=== PATIENT | male | born 1955 | race Caucasian/White ===

== ENCOUNTER 2017-11-11 09:24 | Emergency (ER) | payer BC, OTHER ==
--- NOTE | 2017-11-11 09:57 | EDM.PDOC ---
ED HPI GENERAL MEDICAL PROBLEM - General Chief Complaint: Headache Stated Complaint: DIZZINESS Time Seen by Provider: 11/11/17 09:36 Source of Information: Reports: Patient History Limitations: Reports: No Limitations - History of Present Illness INITIAL COMMENTS - FREE TEXT/NARRATIVE: The patient states that he developed a headache felt in his forehead around 07: 30 this morning, then became vertiginous around 07:40. His vertigo is positional. He has had nausea, but no emesis. He feels a fullness in both ears, more on the left than the right. He states that it is a discomfort, not a pain. He denies decreased hearing. No prior similar symptoms. The patient's PCP is Octavio Javier. Headache Pain Score (Numeric/FACES): 6 - Related Data Allergies Allergy/AdvReac Type Severity Reaction Status Date / Time No Known Allergies Allergy Verified 11/11/17 09:33 Home Meds: Home Meds Hydrochlorothiazide 25 mg PO DAILY 05/12/15 [History] Quinapril HCl [Accupril] 40 mg PO DAILY 05/12/15 [History] Budesonide/Formoterol Fumarate [Symbicort 80-4.5 Mcg Inhaler] 2 puff INH BID [History] Meclizine [Antivert] 1 tab PO Q6H PRN #20 tab 11/11/17 [Rx] Past Medical History Cardiovascular History: Reports: High Cholesterol (untreated), Hypertension Respiratory History: Reports: Asthma Genitourinary History: Reports: BPH (untreated) Musculoskeletal History: Reports: Fracture (4th finger) - Past Surgical History HEENT Surgical History: Reports: Oral Surgery (wisdom teeth extraction) Cardiovascular Surgical History: Reports: Other (See Below) (Coronary angiogram 1998 or 1999) Social & Family History - Family History Family Medical History: Noncontributory - Tobacco Use Smoking Status *Q: Never Smoker - Caffeine Use Caffeine Use: Reports: None - Alcohol Use Alcohol Use History: Yes Alcohol Use Frequency: Socially - Recreational Drug Use Recreational Drug Use: No - Living Situation & Occupation Living situation: Reports: , with Spouse, with Family (4 kids) Occupation: Employed (German/Rancher) ED ROS GENERAL - Review of Systems Review Of Systems: ROS reveals no pertinent complaints other than HPI. ED EXAM, DIZZINESS - Physical Exam Exam: See Below Exam Limited By: No Limitations General Appearance: Alert, WD/WN, No Apparent Distress Eye Exam: Bilateral Eye: EOMI, Normal Inspection, PERRL Ears: Normal External Exam, Normal Canal, Hearing Grossly Normal, Normal TMs Nose: Normal Inspection, Normal Mucosa, No Blood Throat/Mouth: Normal Inspection, Normal Lips, Normal Teeth, Normal Gums, Normal Oropharynx, Normal Voice, No Airway Compromise Head Exam: Atraumatic, Normocephalic Vertigo: worsens with head to R, reproducible, reversible, short duration. No: worsens with head to L Neck: Normal Inspection, Full Range of Motion Respiratory/Chest: No Respiratory Distress, Lungs Clear, Normal Breath Sounds, No Accessory Muscle Use Cardiovascular: Normal Peripheral Pulses, Regular Rate, Rhythm, No Edema, No Gallop, No JVD, No Murmur, No Rub GI/Abdominal: Normal Bowel Sounds, Soft, Non-Tender, No Organomegaly, No Distention, No Abnormal Bruit, No Mass (Male) Exam: Deferred Rectal (Males) Exam: Deferred Neurological: Alert, Normal Dorsiflexion, CN II-XII Intact, Normal Plantar Flexion, No Motor/Sensory Deficits, Oriented x 3 Back Exam: Normal Inspection, Full Range of Motion, NT Extremities: Normal Inspection, Normal Range of Motion, No Pedal Edema, Normal Capillary Refill Psychiatric: Normal Affect Skin Exam: Warm, Dry, Intact, Normal Color, No Rash Course - Vital Signs Last Recorded V/S: Last Vital Signs Temp 36.4 C 11/11/17 11:09 Pulse 64 11/11/17 11:09 Resp 16 11/11/17 11:09 BP 117/79 11/11/17 11:09 Pulse Ox 97 11/11/17 11:09 - Orders/Labs/Meds Orders: Active Orders 24 hr Category Date Time Status Head wo Cont [CT] Stat Exams 11/11/17 09:54 Taken Meds: Medications Discontinued Medications Generic Name Dose Route Start Last Admin Trade Name Keila PRN Reason Stop Dose Admin Meclizine HCl 25 mg 11/11/17 11:03 11/11/17 11:08 Antivert PO 11/11/17 11:04 25 mg ONETIME STA Administration - Re-Assessments/Exams Free Text/Narrative Re-Assessment/Exam: 11/11/17 09:55 The patient reports that his vertigo is modified with position, indicating a peripheral source, and while the Oxford-Hallpike maneuver to the right induced vertigo, it did not induce nystagmus. I think it is most likely that the patient is suffering from BPPV, although with his ear fullness, Mnire's is a possibility. The patient's neurologic exam is completely normal, however, he has a headache. To be on the safe side, I will order a CT scan of the head, although I have no suspicion that it will be anything but normal. 11/11/17 10:42 CT of the head without contrast is read by [facility] as "No acute intracranial hemorrhage." 11/11/17 11:02 Test results discussed with the patient. The patient will receive a dose of meclizine here in the ED prior to discharge, and I will send a prescription for additional. The patient declined an offer for Zofran. I will refer the patient to Dr. Rodriguez for definitive diagnosis and treatment. Departure - Departure Time of Disposition: 11:03 Disposition: Home, Self-Care 01 Condition: Good Clinical Impression: Vertigo - Discharge Information *PRESCRIPTION DRUG MONITORING PROGRAM REVIEWED*: Not Applicable *COPY OF PRESCRIPTION DRUG MONITORING REPORT IN PATIENT ENIO: Not Applicable Prescriptions: Meclizine [Antivert] 1 tab PO Q6H PRN #20 tab PRN Reason: Dizziness Instructions: Vertigo, [id number], Dizziness, [id number] Referrals: cOtavio Javier PA-C [Primary Care Provider] - Ramírez Rodriguez MD [Ordering Only Provider] - Forms: ED Department Discharge Additional Instructions: You were seen in the emergency room for a headache, vertigo, and nausea. Workup in the ER included a CT scan of her head, which was normal. Based on your history and physical examination, you are MOST LIKELY suffering from benign paroxysmal positional vertigo (BPPV), although Mnire disease is a possibility. You have been started on the anti-dizziness medicine Antivert (meclizine). A prescription for Antivert has been sent to the [facility], [address] [place], located just south and across the [address] from [facility]. Take one tablet every 6 hours, starting around 5:00 this evening, 11/11/2017, as needed for dizziness. Follow-up with the Ear, Nose, and Throat Dr. Ramírez Rodriguez in [place] at the next available appointment, for further evaluation and treatment. If any other problems, please do not hesitate to return to the ER. - My Orders Last 24 Hours: My Active Orders 11/11/17 09:54 Head wo Cont [CT] Stat - Assessment/Plan Last 24 Hours: My Active Orders 11/11/17 09:54 Head wo Cont [CT] Stat
[2017-11-11 11:11] VITALS: BP 117/79
--- NOTE | 2017-11-13 19:39 | CT ---
Head CT Technique: Multiple axial sections through the brain were obtained. Intravenous contrast was not utilized. Comparison: No prior intracranial imaging. Findings: Ventricles along with basal cisterns and sulci over the convexities are within normal limits for the patient's age. Very minimal diminished density is noted within the periventricular white matter compatible with slight small vessel ischemic demyelination change. No other abnormal parenchymal densities are seen. No evidence of intracranial hemorrhage. No midline shift or mass effect is seen. Atherosclerotic calcification is noted within the vertebral and carotid siphon. No acute calvarial abnormality is seen. Impression: 1. Mild senescent change. Nothing acute is appreciated on noncontrast head CT study. Diagnostic code #2
== END 2017-11-11 11:20 | disposition home or self-care (01) ==
LOC: JD.ED 09:24
DX: R42 Dizziness and giddiness (principal); I10 Essential (primary) hypertension; Z79.899 Other long term (current) drug therapy
CPT/HCPCS: 70450; 99284; A9270

== ENCOUNTER 2017-11-11 19:52 | Emergency (ER) | payer OTHER ==
[2017-11-11 20:20] VITALS: BP 126/75
[2017-11-11] MEDS ORDERED: Benztropine 1 MG Tab PO STA (20:29)
[2017-11-11] MEDS ORDERED: Ondansetron 4 MG/2 ML SDV IVPUSH ONE (20:29)
[2017-11-11] MEDS ORDERED: Haloperidol Lactate 5 MG/ML SDV IM ONE (20:29)
[2017-11-11] MEDS ORDERED: Sodium Chloride 0.9% 1,000 ML IV SCH (20:30)
--- NOTE | 2017-11-11 20:35 | EDM.PDOC ---
ED HPI GENERAL MEDICAL PROBLEM - General Chief Complaint: Neurological Problem Stated Complaint: POSS STROKE Time Seen by Provider: 11/11/17 20:03 Source of Information: Reports: Patient, Family () History Limitations: Reports: No Limitations - History of Present Illness INITIAL COMMENTS - FREE TEXT/NARRATIVE: A stroke alert was called on this patient. The patient was seen by me this morning after he developed a headache felt in his forehead around 07:30, then vertigo around 07:40. His vertigo was positional. He had had nausea, but no emesis. He had a fullness sensation in both ears, more on the left than the right, but denied decreased hearing. On examination, he had reproducible vertigo with Sayner-Hallpike maneuver to the right , but none with Cinthya-Hallpike maneuver to the left, and nystagmus was not induced with either Sayner-Hallpike maneuver. A CT scan of the head was normal. Because the vertigo was modified with position, this indicated a peripheral source, most consistent with BPPV, although Mnire's was a possibility. The patient was given a dose of meclizine in the ED, then discharged home with a prescription for additional. He declined an offer for Zofran. He was referred to the ENT Dr. Rodriguez. The patient now returns to the ED, having developed some slurred speech perhaps around 15:00, then right upper and lower extremity weakness sometime between 18: 00 and 19:00. He continues to have a headache felt in his forehead and discomfort behind his left ear. He describes the headache as throbbing in character. He reports mild photophobia and phonophobia. He had nausea earlier, which has since resolved. The patient's PCP is Octavio Javier. - Related Data Allergies Allergy/AdvReac Type Severity Reaction Status Date / Time No Known Allergies Allergy Verified 11/11/17 20:20 Home Meds: Home Meds Hydrochlorothiazide 25 mg PO DAILY 05/12/15 [History] Quinapril HCl [Accupril] 40 mg PO DAILY 05/12/15 [History] Budesonide/Formoterol Fumarate [Symbicort 80-4.5 Mcg Inhaler] 2 puff INH BID [History] Meclizine [Antivert] 1 tab PO Q6H PRN #20 tab 11/11/17 [Rx] Past Medical History Cardiovascular History: Reports: High Cholesterol (untreated), Hypertension Respiratory History: Reports: Asthma Genitourinary History: Reports: BPH (untreated) Musculoskeletal History: Reports: Fracture (4th finger) - Past Surgical History HEENT Surgical History: Reports: Oral Surgery (wisdom teeth extraction) Cardiovascular Surgical History: Reports: Other (See Below) (Coronary angiogram 1998 or 1999) Social & Family History - Family History Family Medical History: Noncontributory - Tobacco Use Smoking Status *Q: Never Smoker Second Hand Smoke Exposure: No - Caffeine Use Caffeine Use: Reports: None - Alcohol Use Alcohol Use History: Yes Alcohol Use Frequency: Socially - Recreational Drug Use Recreational Drug Use: No - Living Situation & Occupation Living situation: Reports: , with Spouse, with Family (4 kids) Occupation: Employed (German/Rancher) ED ROS GENERAL - Review of Systems Review Of Systems: ROS reveals no pertinent complaints other than HPI. ED EXAM, NEURO - Physical Exam Exam: See Below Exam Limited By: No Limitations General Appearance: Alert, WD/WN, No Apparent Distress Eye Exam: Bilateral Eye: EOMI, Normal Inspection, Nystagmus (with rightward gaze only - fast component to the right), PERRL Ears: Normal External Exam, Normal Canal, Hearing Grossly Normal, Normal TMs Nose: Normal Inspection, Normal Mucosa, No Blood Throat/Mouth: Normal Inspection, Normal Lips, Normal Teeth, Normal Gums, Normal Oropharynx, Normal Voice, No Airway Compromise Head Exam: Atraumatic, Normocephalic Neck: Normal Inspection, Supple, Non-Tender, Full Range of Motion Respiratory/Chest: No Respiratory Distress, Lungs Clear, Normal Breath Sounds, No Accessory Muscle Use, Chest Non-Tender Cardiovascular: Normal Peripheral Pulses, Regular Rate, Rhythm, No Edema, No Gallop, No JVD, No Murmur, No Rub GI/Abdominal: Normal Bowel Sounds, Soft, Non-Tender, No Organomegaly, No Distention, No Abnormal Bruit, No Mass (Male) Exam: No Hernia, Normal Inspection, Normal Prostate, Circumcised Rectal (Males) Exam: Normal Exam, Normal Rectal Tone, Prostate Normal Neurological: Alert, Normal Mood/Affect, Normal Dorsiflexion, CN II-XII Intact, Normal Plantar Flexion, Normal Gait, Normal Reflexes, No Motor/Sensory Deficits , Oriented x 3 Back Exam: Normal Inspection, Full Range of Motion, NT Extremities: Normal Inspection, Normal Range of Motion, Non-Tender, No Pedal Edema, Normal Capillary Refill Psychiatric: Normal Affect, Normal Mood Skin Exam: Warm, Dry, Intact, Normal Color, No Rash EKG INTERPRETATION EKG Date: 11/11/17 Time: 19:58 Rhythm: Other (Sinus bradycardia) Rate (Beats/Min): 56 Gormania: LAD-Left Gormania Deviation P-Wave: Present QRS: Other (Possible LAFB) ST-T: Normal QT: Normal Comparison: No Change (08/19/2017) Course - Vital Signs Last Recorded V/S: Last Vital Signs Temp 36.2 C 11/11/17 19:58 Pulse 55 L 11/11/17 19:58 Resp 16 11/11/17 19:58 BP 126/75 11/11/17 19:58 Pulse Ox 99 11/11/17 19:58 - Orders/Labs/Meds Orders: Active Orders 24 hr Category Date Time Status EKG Documentation Completion [RC] STAT Care 11/11/17 19:58 Active Head wo Cont [CT] Stat Exams 11/11/17 20:02 Taken Sodium Chloride 0.9% [Normal Saline] 1,000 ml Med 11/11/17 20:30 Active IV ASDIRECTED Medication Orders Sodium Chloride (Normal Saline) 1,000 mls @ 100 mls/hr IV ASDIRECTED MADDY Last Admin: 11/11/17 20:59 Dose: 100 mls/hr Meds: Medications Generic Name Dose Route Start Last Admin Trade Name Freq PRN Reason Stop Dose Admin Sodium Chloride 1,000 mls @ 100 mls/hr 11/11/17 20:30 11/11/17 20:59 Normal Saline IV 100 mls/hr ASDIRECTED MADDY Administration Discontinued Medications Generic Name Dose Route Start Last Admin Trade Name Freq PRN Reason Stop Dose Admin Aspirin 324 mg 11/11/17 21:33 11/11/17 21:38 Aspirin PO 11/11/17 21:34 324 mg ONETIME STA Administration Benztropine Mesylate 1 mg 11/11/17 20:29 11/11/17 20:52 Cogentin PO 11/11/17 20:30 1 mg ONETIME STA Administration Haloperidol Lactate 5 mg 11/11/17 20:29 11/11/17 20:49 Haldol IM 11/11/17 20:30 5 mg ONETIME ONE Administration Ondansetron HCl 4 mg 11/11/17 20:29 11/11/17 20:46 Zofran IVPUSH 11/11/17 20:30 4 mg ONETIME ONE Administration - Re-Assessments/Exams Free Text/Narrative Re-Assessment/Exam: 11/11/17 20:35 CT of the head without contrast is read by [facility] as: - No acute findings seen within the brain. - No significant change compared to a head CT done 10 hours prior. - See above for remaining findings. 11/11/17 20:38 The patient is right-handed, therefore there is about a 95% chance that his language center is in his left hemisphere, yet the patient is able to speak fluidly despite having a right-sided hemiparesis. Has had a headache all day, yet no intracranial bleed to account for it. He presented with both a headache and vertigo this morning, yet his vertigo, while positional, did not include nystagmus. Upon further questioning of his headache, the patient confirms that it is throbbing in character, associated with mild photophobia and phonophobia. He had already told us that he has nausea without emesis. These findings are all consistent with a migraine, which could account for all of his symptoms. I have therefore ordered 5 mg of IM Haldol, along with oral Cogentin, IV fluid, and Zofran. If the patient's symptoms improve or resolve in 15 or 20 minutes, and there is no question but that his symptoms were caused by migraine. If they have no effect in 15 or 20 minutes, then his symptoms are highly unlikely to be migrainous in etiology. 11/11/17 21:17 It has been 20 minutes since the patient received IM Haldol. He reports slight improvement in his right facial paresthesia, but no improvement in his other neurologic deficits. 11/11/17 21:45 Case discussed with [facility] at 21:21. Case then discussed with Dr. Dozier, Stroke Neurologist at [facility], at 21: 27. She recommended that we give a full aspirin. She recommends that the patient be transferred to their facility for a stroke workup, however, she stated that there was no kc, as the patient was not a candidate for intervention, if this turns out to be a stroke, and that therefore the patient could be driven to their facility. Case then discussed with Dr. Bah, Hospitalist at [facility], at 21:36. He accepts the patient for transfer. The above was then discussed with the patient and his . The patient states that he thinks his symptoms are better, but on reexamination, they seem about the same to me. We are looking to see if we can transfer the patient by ground ambulance. If not, it sounds most likely that the patient's would drive the patient. 11/11/17 22:05 Notified that neither [facility] nor [facility] ambulance can transfer the patient to [place]. This was discussed with the patient and his . The patient's is too nervous to drive the patient herself, therefore he will go by fixed wing. 11/11/17 22:43 Notified that the patient's son has come to the ED, and they have collectively changed their mind. They will now drive by private vehicle. Departure - Departure Time of Disposition: 21:40 Disposition: DC/Tfer to Acute Hospital 02 Condition: Fair Clinical Impression: Right hemiparesis, Frontal headache, Positional vertigo - Discharge Information *PRESCRIPTION DRUG MONITORING PROGRAM REVIEWED*: Not Applicable *COPY OF PRESCRIPTION DRUG MONITORING REPORT IN PATIENT ENIO: Not Applicable Referrals: Octavio Javier PA-C [Primary Care Provider] - - My Orders Last 24 Hours: My Active Orders 11/11/17 19:58 EKG Documentation Completion [RC] STAT 11/11/17 20:02 Head wo Cont [CT] Stat 11/11/17 20:30 Sodium Chloride 0.9% [Normal Saline] 1,000 ml IV ASDIRECTED - Assessment/Plan Last 24 Hours: My Active Orders 11/11/17 19:58 EKG Documentation Completion [RC] STAT 11/11/17 20:02 Head wo Cont [CT] Stat 11/11/17 20:30 Sodium Chloride 0.9% [Normal Saline] 1,000 ml IV ASDIRECTED
[2017-11-11] MEDS ORDERED: Aspirin 81 MG Tab.Chew PO STA (21:33)
== END 2017-11-11 23:00 ==
LOC: JD.ED 19:52
DX: G81.91 Hemiplegia, unspecified affecting right dominant side (principal); R42 Dizziness and giddiness; R51 Headache; I10 Essential (primary) hypertension; Z79.899 Other long term (current) drug therapy
CPT/HCPCS: 70450; 93005; 96361; 96372; 96374; 99285; A9270; J1630; J2405; J7040; 93010

== ENCOUNTER 2020-04-15 05:10 | Emergency (ER) | payer MEDICARE, BC ==
[2020-04-15 05:21] VITALS: BP 190/128; PULSE 63
[2020-04-15] MEDS ORDERED: Sodium Chloride 0.9% 10 ML Syringe FLUSH PRN (05:47)
[2020-04-15] MEDS ORDERED: Labetalol 100 MG/20 ML MDV IVPUSH ONE (05:48)
--- NOTE | 2020-04-15 06:17 | EDM.PDOC ---
ED HPI GENERAL MEDICAL PROBLEM - General Chief Complaint: Upper Extremity Injury/Pain Stated Complaint: PAIN IN LEFT SHOULDER & ARM Time Seen by Provider: 04/15/20 05:30 Source of Information: Reports: Patient, Family (), RN Notes Reviewed - History of Present Illness INITIAL COMMENTS - FREE TEXT/NARRATIVE: 64 yr old male with L neck and shoulder pain on and off for about the last week. Pain became more severe late last evening with radiation down L upper arm down to about his elbow. Has also had some mild paresthesias fingers radial aspect of L hand. No chest pressure, tightness or heaviness. No cough, fever, chills, abd pain, back pain, nausea or vomiting. Hx Htn, Hx of previous CVA about 2 1/2 yrs ago. Took aleve about 1 /2 hrs ago and discomfort is now more mild. Had been severe earlier this AM. Has also taken aspirin and tylenol during the night. Does not smoke. Left Shoulder Pain Score (Numeric/FACES): 6 - Related Data Allergies Allergy/AdvReac Type Severity Reaction Status Date / Time No Known Allergies Allergy Verified 04/15/20 05:21 Home Meds: Home Meds Quinapril HCl [Accupril] 20 mg PO DAILY 05/12/15 [History] Budesonide/Formoterol Fumarate [Symbicort 80-4.5 MCG] 2 puff INH BID 11/11/17 [History] Acetaminophen/HYDROcodone [[place] 325-5 MG] 1 tab PO Q6H PRN #20 tablet 04/15/20 [Rx] Albuterol Sulfate [Proair Respiclick] 1 puff INH Q4H PRN 04/15/20 [History] Aspirin [Ecotrin EC] 325 mg PO DAILY 04/15/20 [History] Cholecalciferol (Vitamin D3) [Vitamin D3] 800 unit PO DAILY 04/15/20 [History] Saw/Vit E/Sod Jennifer/Lyc/Beta/Pyg [Prostate Health Caplet] 1 tab PO DAILY 04/15/20 [History] Ubidecarenone [Coq-10] 200 mg PO DAILY 04/15/20 [History] atorvaSTATin [Lipitor] 10 mg PO ASDIRECTED 04/15/20 [History] hydroCHLOROthiazide [Hydrochlorothiazide] 25 mg PO DAILY #30 tab 04/15/20 [Rx] predniSONE [Prednisone] 50 mg PO DAILY #6 tablet 04/15/20 [Rx] Past Medical History Cardiovascular History: Reports: High Cholesterol, Hypertension Respiratory History: Reports: Asthma Genitourinary History: Reports: BPH Musculoskeletal History: Reports: Fracture Neurological History: Reports: CVA - Past Surgical History HEENT Surgical History: Reports: Oral Surgery Cardiovascular Surgical History: Reports: Other (See Below) Other Cardiovascular Surgeries/Procedures: exploratory angiogram Social & Family History - Family History Family Medical History: No Pertinent Family History - Tobacco Use Tobacco Use Status *Q: Never Tobacco User - Caffeine Use Caffeine Use: Reports: None Other Caffeine Use: rarely - Recreational Drug Use Recreational Drug Use: No - Living Situation & Occupation Living situation: Reports: , with Spouse, with Family (4 kids) Occupation: Employed ([employer]/R[employer]) Review of Systems - Review of Systems Review Of Systems: See Below Constitutional: Reports: No Symptoms Mouth/Throat: Reports: No Symptoms Respiratory: Denies: Shortness of Breath, Pleuritic Chest Pain Cardiovascular: Denies: Chest Pain GI/Abdominal: Denies: Abdominal Pain, Nausea, Vomiting Musculoskeletal: Reports: Neck Pain, Shoulder Pain, Arm Pain. Denies: Back Pain Skin: Reports: No Symptoms Neurological: Reports: Numbness (fingers radial aspect of L hand) ED EXAM, GENERAL - Physical Exam Exam: See Below General Appearance: Alert, No Apparent Distress Head: Atraumatic Neck: Supple, Other (Tender L base) Respiratory/Chest: No Respiratory Distress, Lungs Clear, Normal Breath Sounds, Chest Non-Tender. No: Rales, Rhonchi, Wheezing Cardiovascular: Regular Rate, Rhythm GI/Abdominal: Soft, Non-Tender Back Exam: Other (There is tenderness of L upper back connecting to L upper shoulder) Extremities: Other (tender L upper shoulder and L upper post shoulder) Neurological: Alert, Oriented, No Motor/Sensory Deficits Skin Exam: Warm, Dry, Normal Color, No Rash #1 Interpretation EKG Date: 04/15/20 Rhythm: NSR P-Wave: Present QRS: Other (q waves inf. leads) ST-T: Normal QT: Normal Course - Vital Signs Last Recorded V/S: Last Vital Signs Temp 97.1 F 04/15/20 05:17 Pulse 63 04/15/20 05:17 Resp 20 04/15/20 05:17 BP 190/128 H 04/15/20 05:17 Pulse Ox 98 04/15/20 05:17 - Orders/Labs/Meds Orders: Active Orders 24 hr Category Date Time Status EKG 12 Lead [EKG Documentation Completion] [RC] STAT Care 04/15/20 05:31 Active Peripheral IV Care [RC] . DIRECTED Care 04/15/20 05:48 Active Chest 1V Frontal [CR] Stat Exams 04/15/20 05:47 Taken Sodium Chloride 0.9% [Saline Flush] Med 04/15/20 05:47 Active 10 ml FLUSH ASDIRECTED PRN Peripheral IV Insertion Adult [OM.PC] Stat Oth 04/15/20 05:47 Ordered Medication Orders Sodium Chloride (Saline Flush) 10 ml FLUSH ASDIRECTED PRN PRN Reason: Keep Vein Open Last Admin: 04/15/20 05:58 Dose: 10 ml Documented by: REAGAN Labs: Laboratory Tests 04/15/20 04/15/20 Range/Units 05:55 05:55 WBC 6.93 (4.23-9.07) K/mm3 RBC 5.38 (4.63-6.08) M/mm3 Hgb 15.5 (13.7-17.5) gm/dl Hct 46.4 (40.1-51.0) % MCV 86.2 (79.0-92.2) fl MCH 28.8 (25.7-32.2) pg MCHC 33.4 (32.2-35.5) g/dl RDW Std Deviation 41.4 (35.1-43.9) fL Plt Count 245 (163-337) K/mm3 MPV 9.8 (9.4-12.3) fl Neut % (Auto) 61.7 (34.0-67.9) % Lymph % (Auto) 23.1 (21.8-53.1) % [place] % (Auto) 11.1 (5.3-12.2) % Eos % (Auto) 2.6 (0.8-7.0) Baso % (Auto) 1.2 (0.1-1.2) % Neut # (Auto) 4.28 (1.78-5.38) K/mm3 Lymph # (Auto) 1.60 (1.32-3.57) K/mm3 [place] # (Auto) 0.77 (0.30-0.82) K/mm3 Eos # (Auto) 0.18 (0.04-0.54) K/mm3 Baso # (Auto) 0.08 (0.01-0.08) K/mm3 Sodium 144 (136-145) mEq/L Potassium 4.2 (3.5-5.1) mEq/L Chloride 104 (98-107) mEq/L Carbon Dioxide 29 (21-32) mEq/L Anion Gap 15.2 H (5-15) BUN 17 (7-18) mg/dL Creatinine 1.3 (0.7-1.3) mg/dL Est Cr Clr Drug Dosing TNP Estimated GFR (MDRD) 55 (>60) mL/min BUN/Creatinine Ratio 13.1 L (14-18) Glucose 99 (80-115) mg/dL Calcium 9.1 (8.5-10.1) mg/dL Total Bilirubin 0.6 (0.2-1.0) mg/dL AST 14 L (15-37) U/L ALT 22 (16-63) U/L Alkaline Phosphatase 77 (46-116) U/L Troponin I < 0.017 (0.00-0.056) ng/mL Total Protein 7.6 (6.4-8.2) g/dl Albumin 3.9 (3.4-5.0) g/dl Globulin 3.7 gm/dL Albumin/Globulin Ratio 1.1 (1-2) Meds: Medications Generic Name Dose Route Start Last Admin Trade Name Freq PRN Reason Stop Dose Admin Sodium Chloride 10 ml 04/15/20 05:47 04/15/20 05:58 Saline Flush FLUSH 10 ml ASDIRECTED PRN Administration Keep Vein Open Discontinued Medications Generic Name Dose Route Start Last Admin Trade Name Freq PRN Reason Stop Dose Admin Hydromorphone HCl 0.5 mg 04/15/20 06:24 04/15/20 06:27 Dilaudid IVPUSH 04/15/20 06:25 0.5 mg ONETIME ONE Administration Labetalol HCl 20 mg 04/15/20 05:48 04/15/20 05:59 Normodyne IVPUSH 04/15/20 05:49 20 mg ONETIME ONE Administration Protocol Prednisone 40 mg 04/15/20 06:51 04/15/20 07:00 Prednisone PO 04/15/20 06:52 40 mg ONETIME ONE Administration - Re-Assessments/Exams Free Text/Narrative Re-Assessment/Exam: 04/15/20 07:11 EKG did not show any acute changes. CXR nl. Trop nl, other labs relatively nl as well. Hx and exam find sx indicate cervical radiculopathy. Given 1 dose of labetalol 20 mg IV for Htn. Given prednisone 40 mg PO, dilaudid 0.5 mg IV. Discharge instr. as documented. Departure - Departure Time of Disposition: 07:02 Disposition: Home, Self-Care 01 Condition: Fair Clinical Impression: Cervical radiculopathy - Discharge Information Prescriptions: hydroCHLOROthiazide [Hydrochlorothiazide] 25 mg PO DAILY #30 tab Acetaminophen/HYDROcodone [[place] 325-5 MG] 1 tab PO Q6H PRN #20 tablet PRN Reason: Pain predniSONE [Prednisone] 50 mg PO DAILY #6 tablet Referrals: Guero Walker MD [Primary Care Provider] - Forms: ED Department Discharge Additional Instructions: Prednisone 50 mg q AM for the next 6 days. You may continue advil 600 mg up to 3 times daily. Hydrocodone 1 tab q 4 to 6 hours as needed for severe pain. Do not drive when taking hydrocodone. Alternate ice and heat as needed. Continue lisinopril 20 mg q AM. Hydroclorothiazide 25 mg daily. Prescriptions have been sent electronically to the [facility]. Check your BP twice daily and keep a log of that. Follow up clinic in about 5 to days for recheck. Return to ED as needed if symptoms worsening in any way. Sepsis Event Note (ED) - Evaluation Sepsis Screening Result: No Definite Risk - Focused Exam Vital Signs: Vital Signs Temp Pulse Resp BP Pulse Ox 04/15/20 05:17 97.1 F 63 20 190/128 H 98 - My Orders Last 24 Hours: My Active Orders 04/15/20 05:31 EKG 12 Lead [EKG Documentation Completion] [RC] STAT 04/15/20 05:47 Chest 1V Frontal [CR] Stat Sodium Chloride 0.9% [Saline Flush] 10 ml FLUSH ASDIRECTED PRN Peripheral IV Insertion Adult [OM.PC] Stat 04/15/20 05:48 Peripheral IV Care [RC] . DIRECTED - Assessment/Plan Last 24 Hours: My Active Orders 04/15/20 05:31 EKG 12 Lead [EKG Documentation Completion] [RC] STAT 04/15/20 05:47 Chest 1V Frontal [CR] Stat Sodium Chloride 0.9% [Saline Flush] 10 ml FLUSH ASDIRECTED PRN Peripheral IV Insertion Adult [OM.PC] Stat 04/15/20 05:48 Peripheral IV Care [RC] . DIRECTED
[2020-04-15] MEDS ORDERED: HYDROmorphone 0.5 MG/0.5 ML Syringe IVPUSH ONE (06:24)
[2020-04-15] MEDS ORDERED: predniSONE 20 MG Tab PO ONE (06:51)
--- NOTE | 2020-04-15 08:52 | CR ---
Chest: Portable view of the chest was obtained. Comparison: Previous chest x-ray of 08/20/15. Heart size is within normal limits. Upper mediastinum is within normal limits. Minimal atelectasis is seen within the lateral left costophrenic angle. Lungs otherwise are clear. No acute bony abnormality is appreciated. Impression: 1. Minimal atelectasis within the lateral left costophrenic angle. 2. Nothing acute is otherwise seen. Diagnostic code #2
== END 2020-04-15 07:25 | disposition home or self-care (01) ==
LOC: JD.ED 05:10
DX: M54.12 Radiculopathy, cervical region (principal); E78.00 Pure hypercholesterolemia, unspecified; I10 Essential (primary) hypertension; J45.909 Unspecified asthma, uncomplicated; Z79.899 Other long term (current) drug therapy; Z79.82 Long term (current) use of aspirin
CPT/HCPCS: 36415; 71045; 80053; 84484; 85025; 93005; 96374; 96375; 99284; J1170; J3490; J7512; 93010

== ENCOUNTER 2022-10-10 05:06 | Emergency (ER) | payer BC, MEDICARE ==
[~2022-10-10 05:06] MED LIST: EPINEPHrine 1:10,000 1 MG/10 ML Syringe ONE; Sodium Bicarbonate 8.4% 50 MEQ/50 ML Syringe ONE; Sodium Chloride 0.9% 1,000 ML IV ONE
== END 2022-10-10 08:21 | disposition expired ==
LOC: JD.ED 05:06
DX: I46.9 Cardiac arrest, cause unspecified (principal); I10 Essential (primary) hypertension; E78.00 Pure hypercholesterolemia, unspecified; J45.909 Unspecified asthma, uncomplicated; Z79.899 Other long term (current) drug therapy; Z79.82 Long term (current) use of aspirin
CPT/HCPCS: 31500; 36680; 92950; 99285; J0171; J7030; J3490